=== PATIENT | male | born 1940 | race Caucasian/White ===

== ENCOUNTER 2023-01-04 11:34 | Emergency (ER) | payer BC ==
[~2023-01-04] VITALS: Ht 182.9 cm; Wt 90.9 kg
[2023-01-04 11:55] VITALS: BP 113/67; PULSE 106; RESP 16; TEMP 97.8; O2SAT 96
[2023-01-04 12:27] LABS: CLARITY,URINE CLOUDY (Clear); COLOR,URINE YELLOW (Yellow); GLUCOSE, URINE NEGATIVE (Neg); KETONES,URINE NEGATIVE (Neg); LEUKOCYTE ESTERASE ,URINE SMALL (Neg); NITRITES, URINE POSITIVE (Neg); OCCULT BLOOD,URINE MODERATE (Neg); PH,URINE 5.5 (4.8-8.0); PROTEIN,URINE 100 mg/dl (Neg)
[2023-01-04 12:31] LABS: UA COLLECTION TYPE CLN CATCH MIDSTREAM
[2023-01-04 12:54] LABS: RBC,URINE TNTC /HPF (0-2)
[2023-01-04 12:55] LABS: BACTERIA,URINE 1+ /HPF (Neg)
[2023-01-04 12:56] LABS: SQUAMOUS EPITHELIAL CELL,UR FEW /LPF (FEW)
[2023-01-04] MEDS ORDERED: cephalexin 250mg capsule PO ONE (15:25)
[2023-01-04] MEDS ORDERED: CEPH-585 PO (15:29)
== END 2023-01-04 15:49 | disposition home or self-care (01) ==
LOC: ER 11:36
DX: N39.0 Urinary tract infection, site not specified (principal); Z87.448 Personal history of other diseases of urinary system; Z88.8 Allergy status to other drugs, medicaments and biological substances
CPT/HCPCS: 81001; 87077; 87088; 87186; 99283